=== PATIENT | female | born 1990 | race Caucasian/White ===

== ENCOUNTER 2022-04-14 07:03 | Day surgery (SDC) | payer OTHER ==
[2022-04-12 18:32] VITALS: BMI 22.1
[~2022-04-14 07:03] MED LIST: LACTATED RINGERS 1,000 ML IV SCH
[2022-04-14 07:39] VITALS: TEMP 96.2
[2022-04-14] MEDS ORDERED: LIDOCAINE 1% (10MG/ML) FOR IV START INTRADERMA ONE (07:40)
[2022-04-14] MEDS ORDERED: PROPOFOL 10 MG/ML 20 ML VIAL IV ONE (08:10)
[2022-04-14] MEDS ORDERED: LIDOCAINE 2% INJ 20 MG/ML (2 ML VIAL) ONE (08:10)
--- NOTE | 2022-04-14 08:26 | P.PCN ---
Date of Procedure: 04/14/22 Procedure(s) Performed: BRIEF HISTORY: Patient is a 31-year-old pleasant female scheduled for an elective colonoscopy as a part of evaluation of recent episode of acute sigmoid diverticula colitis in January of this year requiring hospitalization and antibiotic and presently symptomatic. PROCEDURE PERFORMED: Colonoscopy. PREOPERATIVE DIAGNOSIS: Recent episode of acute sigmoid diverticulitis. IV sedation per Anesthesia. PROCEDURE: After informed consent was obtained, the patient, was brought into [facility] endoscopy unit. IV sedation was administered by Anesthesia under continuous monitoring. Digital rectal examination was normal. Initially the Olympus CF-160 flexible video colonoscope was then inserted in the rectum, gradually advanced into the cecum without any difficulty. Careful examination was performed as the scope was gradually being withdrawn. Ileocecal valve and the appendiceal orifice were visualized and appeared normal. Prep was excellent. Mucosa of the cecum, ascending colon, transverse colon, descending colon, sigmoid colon, and rectum appeared normal. Scattered sigmoid diverticulosis. Retroflexion was performed in the rectum and no lesions were seen. The patient tolerated the procedure well. IMPRESSION: Normal-appearing colon from rectum to cecum with no evidence of colorectal neoplasia Scattered sigmoid diverticulosis. RECOMMENDATIONS: Findings of this examination were discussed with the patient as well as a family. She was advised to be a high-fiber diet and take fiber supplements a regular basis. Given a repeat screening colonoscopy at age 44..
[2022-04-14 08:51] VITALS: BP 100/68; PULSE 85; RESP 18
== END 2022-04-14 08:58 | disposition home or self-care (01) ==
LOC: ORWHC2ENDO 07:03
PROVIDERS: ATTEND Internal Medicine Gastroenterology
DX: K57.30 Diverticulosis of large intestine without perforation or abscess without bleeding (principal); R56.9 Unspecified convulsions; D69.3 Immune thrombocytopenic purpura; Z79.1 Long term (current) use of non-steroidal anti-inflammatories (NSAID); Z79.899 Other long term (current) drug therapy
CPT/HCPCS: 81025; 45378; J2704; J2001